=== PATIENT | female | born 1995 | race Caucasian/White ===

== ENCOUNTER 2020-06-10 13:36 | Emergency (ER) | payer OTHER ==
[~2020-06-10] VITALS: Ht 167.6 cm; Wt 61.2 kg
[2020-06-10 13:45] VITALS: BP 112/81
--- NOTE | 2020-06-10 13:48 | NUR ---
PT TAKEN TO BED 2.
--- NOTE | 2020-06-10 14:00 | NUR ---
25/F PRESENTS TO ED WITH C/O SORE THROAT, COUGH, N/V/D, LOSS OF TASTE X4 DAYS. PT STATES SHE NEEDS TO GET A COVID TEST TO ENTER A REHAB FACILITY FOR DRUG REHAB.
--- NOTE | 2020-06-10 14:00 | NUR ---
Patient being evaluated by Dr. Miller at bedside.
[2020-06-10 14:27] VITALS: BP 112/81
--- NOTE | 2020-06-10 14:28 | NUR ---
Patient discharged with v/s stable. Written and verbal after care instructions given and explained. Patient verbalized understanding. Ambulatory with steady gait. All questions addressed prior to discharge. Advised to follow up with PMD.
--- NOTE | 2020-06-12 09:33 | NUR ---
Negative covid result received from lab. Copy to Yoana at infection control and warehouse administrative assistant given
== END 2020-06-10 14:28 | disposition home or self-care (01) ==
LOC: MED 13:36
DX: J02.9 Acute pharyngitis, unspecified (principal); Z20.828 Contact with and (suspected) exposure to other viral communicable diseases
CPT/HCPCS: 99283; U0003

== ENCOUNTER 2022-04-30 21:08 | Emergency (ER) | payer MEDICAID ==
[~2022-04-30] VITALS: Ht 165.1 cm; Wt 59.0 kg
[2022-04-30 21:12] VITALS: BP 102/67
[2022-04-30 22:47] LABS: BASOPHILS # (AUTO) 0.1 K/uL (0.00-0.22); BASOPHILS % (AUTO) 0.6 % (0.0-2.0); EOSINOPHILS # (AUTO) 0.3 K/uL (0-0.4); EOSINOPHILS % (AUTO) 3.4 % (0.0-4.0); HEMATOCRIT 38.2 % (36-48); HEMOGLOBIN 13.1 g/dL (12.0-16.0); LYMPHOCYTES # (AUTO) 2.1 K/uL (2.5-16.5); LYMPHOCYTES % (AUTO) 23.4 % (20.5-51.1); MEAN CORPUSCULAR HEMOGLOBIN 29 pg (27-31); MEAN CORPUSCULAR HGB CONC 34 g/dL (33-37); MEAN CORPUSCULAR VOLUME 86.1 fL (80-94); MONOCYTES # (AUTO) 0.7 K/uL (0.8-1.0); MONOCYTES % (AUTO) 8.4 % (1.7-9.3); NEUTROPHILS # (AUTO) 5.7 K/uL (1.8-7.7); NEUTROPHILS % (AUTO) 64.2 % (42.2-75.2); PLATELET COUNT (AUTO) 317 K/uL (140-450); RED BLOOD CELL COUNT(AUTO) 4.43 MIL/uL (4.20-5.40); RED CELL DISTRIBUTION WIDTH 13.5 % (11.6-13.7); WHITE BLOOD COUNT (AUTO) 8.8 K/uL (4.8-10.8)
[2022-04-30 23:17] LABS: POTASSIUM 3.5 mmol/L (3.5-5.1); SODIUM SERUM 140 mmol/L (136-145)
[2022-04-30 23:18] LABS: ANION GAP 13.8 (8-16); CARBON DIOXIDE 25.7 mmol/L (21-32); CHLORIDE 104 mmol/L (98-107); CREATININE 0.7 mg/dL (0.6-1.3); GFR ARICAN-AMERICAN 127 mL/min (>90); GLUCOSE 122 mg/dL (74-106); UREA NITROGEN, BLOOD 27 mg/dL (7-18)
[2022-04-30 23:19] LABS: ACETAMINOPHEN < 0.5 ug/ml (10-30); ALBUMIN 3.5 g/dL (3.4-5.0); SALICYLATE < 2.8 mg/dL (2.8-20.0)
[2022-04-30 23:29] LABS: ASPARTATE AMINOTRANSFERASE 5 U/L (15-37); TOTAL BILIRUBIN 0.9 mg/dL (0.0-1.0)
[2022-05-01 00:21] VITALS: BP 127/85
== END 2022-05-01 00:20 ==
LOC: MED 21:08
DX: F15.129 Other stimulant abuse with intoxication, unspecified (principal); F20.9 Schizophrenia, unspecified; F32.9 Major depressive disorder, single episode, unspecified; J45.909 Unspecified asthma, uncomplicated; Z02.89 Encounter for other administrative examinations
CPT/HCPCS: 36415; 70450; 80053; 85025; 99285; G0480; G0482